=== PATIENT | female | born 1975 | race Two or more races ===

== ENCOUNTER 2018-02-13 09:14 | Emergency (ER) | payer MEDICAID ==
[~2018-02-13] VITALS: Ht 167.6 cm; Wt 86.2 kg
[2018-02-13 10:23] VITALS: BP 156/82
[2018-02-13] MEDS ORDERED: IBUPROFEN 800 MG TAB PO ONE (11:00)
== END 2018-02-13 11:06 | disposition home or self-care (01) ==
LOC: ER 09:14
DX: S46.911A Strain of unspecified muscle, fascia and tendon at shoulder and upper arm level, right arm, initial encounter (principal); F17.210 Nicotine dependence, cigarettes, uncomplicated; W11.XXXA Fall on and from ladder, initial encounter; Y93.89 Activity, other specified; Y99.8 Other external cause status; Y92.89 Other specified places as the place of occurrence of the external cause
CPT/HCPCS: 73030; 73060; 81025

== ENCOUNTER 2018-04-16 18:16 | Emergency (ER) | payer MEDICAID ==
[~2018-04-16] VITALS: Ht 165.1 cm; Wt 81.6 kg
[2018-04-16 18:27] VITALS: BP 155/87
== END 2018-04-17 02:37 | disposition left against medical advice (07) ==
LOC: ER 18:16
DX: R11.2 Nausea with vomiting, unspecified (principal); R51 Headache; Z53.21 Procedure and treatment not carried out due to patient leaving prior to being seen by health care provider
CPT/HCPCS: 71046; 93005